=== PATIENT | male | born 1990 | race Caucasian/White ===

== ENCOUNTER 2020-11-27 11:10 | Emergency (ER) | payer OTHER ==
--- NOTE | 2020-11-27 11:34 | EDM.PDOC ---
ED HPI GENERAL MEDICAL PROBLEM - General Chief Complaint: Syncope Stated Complaint: PASSED OUT Time Seen by Provider: 11/27/20 12:02 Source of Information: Reports: Patient, RN Notes Reviewed History Limitations: Reports: No Limitations - History of Present Illness INITIAL COMMENTS - FREE TEXT/NARRATIVE: Sim presents today for complaints of syncope [employer]. He states he was up late last night, did 4 lines of cocaine and went to bed about 4 am. He woke up today, sat down and then blacked out. He reports his friends noticed he passed out and then woke up. He complains of headache. He denies chest pain, fever, cough, palpitations, SOB, difficulty breathing, change in vision, hearing, fever, chills, vomiting, change in bowel/bladder or incontinence of bowel/bladder. - Related Data Allergies Allergy/AdvReac Type Severity Reaction Status Date / Time No Known Allergies Allergy Verified 11/27/20 11:45 Home Meds: Home Meds NK [No Known Home Meds] 11/27/20 [History] Social & Family History - Recreational Drug Use Recreational Drug Use: Yes Drug Use in Last 12 Months: Yes Recreational Drug Type: Reports: Cocaine ED ROS GENERAL - Review of Systems Review Of Systems: See Below Constitutional: Reports: Diaphoresis. Denies: Fever, Chills, Malaise, Weakness, Fatigue, Night Sweats HEENT: Reports: No Symptoms Respiratory: Denies: Shortness of Breath, Wheezing, Pleuritic Chest Pain, Cough, Sputum, Hemoptysis Cardiovascular: Reports: Lightheadedness, Syncope. Denies: Chest Pain, Blood Pressure Problem, Claudication, Dyspnea on Exertion, Edema, Orthopnea, Palpitations, PND Endocrine: Reports: No Symptoms GI/Abdominal: Reports: Nausea. Denies: Abdominal Pain, Anorexia, Black Stool, Bloody Stool, Constipation, Diarrhea, Difficulty Swallowing, Hematemesis, Hematochezia, Melena, Vomiting : Reports: No Symptoms Musculoskeletal: Reports: No Symptoms Skin: Reports: No Symptoms Neurological: Reports: Headache, Syncope. Denies: Confusion, Dizziness, Numbness, Paresthesia, Seizure, Tingling, Tremors, Trouble Speaking, Difficulty Walking, Weakness, Change in Speech, Gait Disturbance Psychiatric: Reports: Anxiety Hematologic/Lymphatic: Reports: No Symptoms Immunologic: Reports: No Symptoms ED EXAM, GENERAL - Physical Exam Exam: See Below Exam Limited By: No Limitations General Appearance: Alert, WD/WN, Mild Distress Eye Exam: Bilateral Eye: EOMI, Normal Inspection, PERRL Ears: Normal External Exam, Normal Canal, Hearing Grossly Normal, Normal TMs Ear Exam: Bilateral Ear: TM normal Nose: Normal Inspection, Normal Mucosa, No Blood Throat/Mouth: Normal Inspection, Normal Lips, Normal Teeth, Normal Gums, Normal Oropharynx, Normal Voice, No Airway Compromise Head: Atraumatic, Normocephalic Neck: Normal Inspection, Supple, Non-Tender, Full Range of Motion. No: Lymphadenopathy (R), Lymphadenopathy (L) Respiratory/Chest: No Respiratory Distress, Lungs Clear, Normal Breath Sounds, No Accessory Muscle Use, Chest Non-Tender. No: Decreased Breath Sounds, Crackles, Rales, Rhonchi, Wheezing, Accessory Muscle Use, Retractions, Splinting Cardiovascular: Normal Peripheral Pulses, Regular Rate, Rhythm, No Edema, No Gallop, No JVD, No Murmur, No Rub Peripheral Pulses: 4+: Carotid (L), Carotid (R), Radial (L), Radial (R) GI/Abdominal: Normal Bowel Sounds, Soft, Non-Tender, No Organomegaly, No Distention, No Mass. No: Guarding, Rigid, Rebound, Tender (Male) Exam: Deferred Rectal (Males) Exam: Deferred Back Exam: Normal Inspection, Full Range of Motion. No: CVA Tenderness (R), CVA Tenderness (L) Extremities: Normal Inspection, Normal Range of Motion, Non-Tender, No Pedal Edema, Normal Capillary Refill Neurological: Alert, Oriented, CN II-XII Intact, Normal Cognition, Normal Gait, Normal Reflexes, No Motor/Sensory Deficits Psychiatric: Normal Affect, Anxious Skin Exam: Warm, Intact, Normal Color, No Rash, Diaphoretic Lymphatic: No Adenopathy #1 Interpretation EKG Date: 11/27/20 Time: 11:25 Rhythm: NSR Rate (Beats/Min): 82 Henning: Normal P-Wave: Present QRS: Normal ST-T: Normal QT: Normal Comparison: NA - No Prior EKG Course - Vital Signs Last Recorded V/S: Last Vital Signs Temp 36.7 C 11/27/20 11:48 Pulse 83 11/27/20 11:48 Resp 14 11/27/20 11:48 BP 153/90 H 11/27/20 11:48 Pulse Ox 98 11/27/20 11:48 - Orders/Labs/Meds Orders: Active Orders 24 hr Category Date Time Status Saline Lock Insert [OM.PC] Routine Oth 11/27/20 12:18 Ordered EKG 12 Lead [EK] Routine Ther 11/27/20 12:03 Ordered Labs: Laboratory Tests 11/27/20 11/27/20 11/27/20 Range/Units 12:30 12:30 12:30 WBC 12.8 H (4.5-11.0) K/uL RBC 5.33 (4.30-5.90) M/uL Hgb 15.2 H (12.0-15.0) g/dL Hct 44.3 (40.0-54.0) % MCV 83 (80-98) fL MCH 29 (27-31) pg MCHC 34 (32-36) % Plt Count 351 (150-400) K/uL Neut % (Auto) 73.4 H (36-66) % Lymph % (Auto) 17.3 L (24-44) % [place] % (Auto) 8.6 H (2-6) % Eos % (Auto) 0.2 L (2-4) % Baso % (Auto) 0.5 (0-1) % Sodium 142 (140-148) mmol/L Potassium 3.9 (3.6-5.2) mmol/L Chloride 102 (100-108) mmol/L Carbon Dioxide 26 (21-32) mmol/L Anion Gap 14.2 H (5.0-14.0) mmol/L BUN 12 (7-18) mg/dL Creatinine 0.9 (0.8-1.3) mg/dL Est Cr Clr Drug Dosing 133.52 mL/min Estimated GFR (MDRD) > 60 (>60) Glucose 88 (74-106) mg/dL Calcium 8.8 (8.5-10.1) mg/dL Troponin I < 0.017 (0.000-0.056) ng/mL Patient lab work reviewed, he declines to leave a urine. Patient provided 2000ml IV fluid, tolerated well with toradol 30mg IV for headache. Improvement of headache. Patient will be discharged to home, he is in agreement with plan. Meds: Medications Discontinued Medications Generic Name Dose Route Start Last Admin Trade Name Freq PRN Reason Stop Dose Admin Sodium Chloride 1,000 mls @ 999 mls/hr 11/27/20 12:18 11/27/20 12:38 Normal Saline IV 11/27/20 13:18 999 mls/hr .BOLUS ONE Administration Lactated Ringer's 1,000 mls @ 999 mls/hr 11/27/20 13:30 11/27/20 13:40 Ringers, Lactated IV 999 mls/hr ASDIRECTED ROBBIN Administration Ketorolac Tromethamine 30 mg 11/27/20 13:27 11/27/20 13:36 Ketorolac 30 Mg/Ml Sdv IVPUSH 11/27/20 13:28 30 mg ONETIME ONE Administration Ondansetron HCl 4 mg 11/27/20 12:18 11/27/20 12:40 Ondansetron 4 Mg/2 Ml Sdv IVPUSH 11/27/20 12:19 4 mg ONETIME ONE Administration Sodium Chloride 10 ml 11/27/20 12:18 11/27/20 12:39 Sodium Chloride 0.9% 10 Ml Syringe FLUSH 10 ml ASDIRECTED PRN Administration Keep Vein Open - Re-Assessments/Exams Free Text/Narrative Re-Assessment/Exam: 11/27/20 13:29 Patient resting, lab work reviewed with him. No urge to urinate, ongoing headache. 900ml normal saline infused at this time. We will administer toradol 30mg IV and provide 1000ml Lactated ringers IV infusion. Departure - Departure Time of Disposition: 14:56 Disposition: Home, Self-Care 01 Condition: Good Clinical Impression: Syncope, Illicit drug use Instructions: Near-Syncope, [id number] Referrals: PCP,None [Primary Care Provider] - Forms: ED Department Discharge Additional Instructions: You have been evaluated and treated for syncope and illicit drug use. Your cardiac lab work, all other lab work, and cardiac tracing was normal and did not she any acute findings or injury. You were provided 2000ml of IV hydration and medication for your headache. Avoid use of illicit drugs. Drink plenty of water and gatorade to stay hydrated. Take tylenol and ibuprofen for headaches as needed. Return for any worsening, issues or concerns. - My Orders Last 24 Hours: My Active Orders 11/27/20 12:03 EKG 12 Lead [EK] Routine 11/27/20 12:18 Saline Lock Insert [OM.PC] Routine - Assessment/Plan Last 24 Hours: My Active Orders 11/27/20 12:03 EKG 12 Lead [EK] Routine 11/27/20 12:18 Saline Lock Insert [OM.PC] Routine Assessment:: Syncope, Illicit drug use Plan: evaluated and treated for syncope and illicit drug use. Your cardiac lab work, all other lab work, and cardiac tracing was normal and did not she any acute findings or injury. You were provided 2000ml of IV hydration and medication for your headache. Avoid use of illicit drugs. Drink plenty of water and gatorade to stay hydrated. Take tylenol and ibuprofen for headaches as needed. Return for any worsening, issues or concerns.
[2020-11-27] MEDS ORDERED: Sodium Chloride 0.9% 1,000 ML IV ONE (12:18)
[2020-11-27] MEDS ORDERED: Ondansetron 4 MG/2 ML SDV IVPUSH ONE (12:18)
[2020-11-27] MEDS ORDERED: Sodium Chloride 0.9% 10 ML Syringe FLUSH PRN (12:18)
[2020-11-27] MEDS ORDERED: Ketorolac 30 MG/ML SDV IVPUSH ONE (13:27)
[2020-11-27] MEDS ORDERED: Lactated Ringers 1,000 ML IV SCH (13:30)
== END 2020-11-27 15:10 | disposition home or self-care (01) ==
LOC: JP.ED 11:10
DX: R55 Syncope and collapse (principal); F19.10 Other psychoactive substance abuse, uncomplicated
CPT/HCPCS: 36415; 80048; 84484; 85025; 93005; 96374; 96375; 99284; J1885; J2405; J7030; J7120